=== PATIENT | female | born 1995 | race Caucasian/White ===

== ENCOUNTER 2018-03-13 11:17 | Emergency (ER) | payer MEDICAID, OTHER ==
[2018-03-13 11:43] VITALS: BP 136/86
--- NOTE | 2018-03-13 11:45 | UC ---
Skin Complaint HPI - HPI Summary HPI Summary: 22 yo female presents with skin lesions to b/l breasts. She tells me that the lesion on her left breast has been there about 10 months and drains clear fluid at times. She admits to "popping" it quite frequently as she thought it was a cyst. Over the last week has noticed two similar spots on her right breast, but these are not draining. Lesions are NTTP. She has not noticed any lumps or bumps in her breasts and has had no nipple discharge. Denies fever, chills, or hx of MRSA. - History of Current Complaint Chief Complaint: UCSkin Time Seen by Provider: 03/13/18 11:45 Stated Complaint: SKIN CONCERN - BREASTS Hx Obtained From: Patient Hx Last Menstrual Period: 01/31/18, nexplanon Onset/Duration: Gradual Onset Onset Severity: Moderate Current Severity: Moderate Pain Intensity: 6 Pain Scale Used: 0-10 Numeric - Allergy/Home Medications Allergies/Adverse Reactions: Allergies Allergy/AdvReac Type Severity Reaction Status Date / Time No Known Allergies Allergy Verified 03/13/18 11:40 Home Medications: Home Medications Etonogestrel [Nexplanon] 68 mg IMPLANT ONCE 03/13/18 [History Confirmed 03/13/18 ] Review of Systems Constitutional: Negative Skin: Rash Eyes: Negative Respiratory: Negative Cardiovascular: Negative Gastrointestinal: Negative Neurological: Negative Psychological: Negative All Other Systems Reviewed And Are Negative: Yes PMH/Surg Hx/FS Hx/Imm Hx - Additional Past Medical History Additional PMH: None - Surgical History Surgical History: Yes Surgery Procedure, Year, and Place: dental - Family History Known Family History: Positive: None - Social History Occupation: Unemployed Lives: With Family Alcohol Use: None Substance Use Type: None Smoking Status (MU): Heavy Every Day Tobacco Smoker Type: Cigarettes Amount Used/How Often: 1ppd Physical Exam - Summary Physical Exam Summary: GENERAL: NAD. WDWN. No pain distress. SKIN: LEFT BREAST: inferior lateral aspect with superficial abrasion draining clear fluid. Mild erythema. NTTP. No induration or dimpling. No nipple discharge. RIGHT BREAST: Two 5mm diameter mildly erythematous lesions with mild edema. NTTP. No discharge/bleeding. No dimpling or nipple discharge. No axillary LAD appreciated. NECK: Supple. Nontender. No lymphadenopathy. CHEST: No accessory muscle use. Breathing comfortably and in no distress. CV: Pulses intact. Cap refill <2seconds NEURO: Alert. PSYCH: Age appropriate behavior. Triage Information Reviewed: Yes Vital Signs: Initial Vital Signs Temp 97.2 F 03/13/18 11:37 Pulse 87 03/13/18 11:37 Resp 15 03/13/18 11:37 BP 136/86 03/13/18 11:37 Pulse Ox 100 03/13/18 11:37 Vital Signs Reviewed: Yes Course/Dx - Course Course Of Treatment: A culture was obtained and will be sent to the lab. High suspicion of MRSA given the presensation and non-healing qualities. Will place her on Bactrim and have her change the dressing on each wound daily. F/u if does not improve. - Diagnoses Provider Diagnoses: Staph skin infection b/l breasts Discharge - Sign-Out/Discharge Documenting (check all that apply): Patient Departure All imaging exams completed and their final reports reviewed: No Studies - Discharge Plan Condition: Stable Disposition: HOME Prescriptions: Sulfamethox/Trimethoprim DS* [Bactrim DS 800/160 TAB*] 1 tab PO BID #20 tab Patient Education Materials: Abscess (ED) Referrals: No Primary Care Phys,NOPCP [Primary Care Provider] - Additional Instructions: If you develop a fever, shortness of breath, chest pain, new or worsening symptoms - please call your PCP or go to the ED. Your blood pressure was high at todays visit. Please see your primary provider within 4 weeks for recheck and re-evaluation. 1) Keep the areas covered until well healed - Billing Disposition and Condition Condition: STABLE Disposition: Home
--- NOTE | 2018-03-14 11:25 | UC ---
- Progress Note Progress Note: 2+ cocci resembling staph On Bactrim await sensitivity cammyj 03/14 Discharge - Sign-Out/Discharge Documenting (check all that apply): Post-Discharge Follow Up All imaging exams completed and their final reports reviewed: No Studies - Discharge Plan Condition: Stable Disposition: HOME Prescriptions: Sulfamethox/Trimethoprim DS* [Bactrim DS 800/160 TAB*] 1 tab PO BID #20 tab Patient Education Materials: Abscess (ED) Referrals: No Primary Care Phys,NOPCP [Primary Care Provider] - Additional Instructions: If you develop a fever, shortness of breath, chest pain, new or worsening symptoms - please call your PCP or go to the ED. Your blood pressure was high at todays visit. Please see your primary provider within 4 weeks for recheck and re-evaluation. 1) Keep the areas covered until well healed - Billing Disposition and Condition Condition: STABLE Disposition: Home
== END 2018-03-13 11:59 | disposition home or self-care (01) ==
LOC: UCCORT 11:17
DX: L08.89 Other specified local infections of the skin and subcutaneous tissue (principal); R03.0 Elevated blood-pressure reading, without diagnosis of hypertension; F17.210 Nicotine dependence, cigarettes, uncomplicated
CPT/HCPCS: 87070; 87077; 87186; 87205; 87640; 87641; 99202; G0463